=== PATIENT | female | born 1980 | race Hispanic/Latino ===

== ENCOUNTER 2018-03-22 20:51 | Inpatient (IN) | payer OTHER ==
[~2018-03-22] VITALS: Ht 157.5 cm; Wt 117.9 kg
[2018-03-22 23:34] LABS: BASOPHILS % (AUTO) 0.8 % (0.0-5.0); EOSINOPHILS % (AUTO) 0.2 % (0.0-8.0); HEMATOCRIT 38.4 % (36-48); LYMPHOCYTES % (AUTO) 21.3 % (21.0-51.0); MEAN CORPUSCULAR HGB CONC 34.1 g/dL (32.0-36.0); MONOCYTES % (AUTO) 6.3 % (3.0-13.0); NEUTROPHILS % (AUTO) 71.4 % (40.0-77.0); PLATELET COUNT (AUTO) 327 K/uL (130-400); RED BLOOD CELL COUNT(AUTO) 4.22 MIL/uL (4.00-5.50); RED CELL DISTRIBUTION WIDTH 12.9 % (11.0-15.5); WHITE BLOOD COUNT (AUTO) 19.7 K/uL (4.8-10.8)
[2018-03-22 23:43] LABS: CREATININE 0.9 mg/dL (0.5-1.5); POTASSIUM 3.6 mmol/L (3.5-5.1)
[2018-03-22 23:47] LABS: ALBUMIN 3.3 g/dL (3.5-5.0); BILIRUBIN,TOTAL 0.8 mg/dL (0.2-1.0); TOTAL PROTEIN, SERUM 7.5 g/dL (6.0-8.3)
[2018-03-22] MEDS ORDERED: SODIUM CHLORIDE 0.9% 50 ML IV ONE (23:47)
[2018-03-22] MEDS ORDERED: ZOSYN 3.375GM+NS 50ML 50 ML IV ONE (23:47)
[2018-03-22 23:58] LABS: APPEARANCE,URINE CLEAR (CLEAR); BILIRUBIN,URINE NEGATIVE (NEGATIVE); COLOR,URINE YELLOW (YELLOW); GLUCOSE, URINE (UA) NEGATIVE (NEGATIVE); KETONES,URINE 5 mg/dL (NEGATIVE); LEUKOCYTE ESTERASE ,URINE NEGATIVE (NEGATIVE); NITRATE,URINE NEGATIVE (NEGATIVE); OCCULT BLOOD,URINE NEGATIVE (NEGATIVE); PH,URINE 5.5 (5.0-8.0); PROTEIN,URINE NEGATIVE (NEGATIVE)
[2018-03-23] MEDS ORDERED: VANCOMYCIN 1GM+NS 250ML 250 ML IV ONE (02:55)
[2018-03-23 05:45] VITALS: BP 116/72
[2018-03-23 06:51] LABS: BASOPHILS % (AUTO) 0.3 % (0.0-5.0); EOSINOPHILS % (AUTO) 0.5 % (0.0-8.0); HEMATOCRIT 35.5 % (36-48); LYMPHOCYTES % (AUTO) 21.3 % (21.0-51.0); MEAN CORPUSCULAR HEMOGLOBIN 31.3 pg (27.0-33.0); MEAN CORPUSCULAR HGB CONC 34.5 g/dL (32.0-36.0); MEAN CORPUSCULAR VOLUME 90.8 fL (79-99); MONOCYTES % (AUTO) 7.4 % (3.0-13.0); NEUTROPHILS % (AUTO) 70.5 % (40.0-77.0); PLATELET COUNT (AUTO) 323 K/uL (130-400); RED BLOOD CELL COUNT(AUTO) 3.91 MIL/uL (4.00-5.50); RED CELL DISTRIBUTION WIDTH 12.8 % (11.0-15.5); WHITE BLOOD COUNT (AUTO) 14.8 K/uL (4.8-10.8)
[2018-03-23 07:04] LABS: CREATININE 0.9 mg/dL (0.5-1.5); POTASSIUM 3.4 mmol/L (3.5-5.1)
[2018-03-23 08:00] VITALS: BP 102/55
[2018-03-23 11:43] VITALS: BP 113/70
[2018-03-23 16:00] VITALS: BP 113/61
[2018-03-23] MEDS: TRAMADOL HCL 50 MG TABLET PO PRN (16:03)
[2018-03-23] MEDS: VANCOMYCIN 1GM+NS 250ML 250 ML IV SCH (16:04)
[2018-03-23] MEDS: SODIUM CHLORIDE 0.9% 1000ML 1,000 ML IV SCH ×2 (16:05→21:44)
[2018-03-23] MEDS ORDERED: MORPHINE SULFATE 2 MG/ML 1ML SYG IVP PRN (17:30)
[2018-03-23 19:11] VITALS: BP 113/71
[2018-03-23] MEDS ORDERED: MORPHINE SULFATE 4 MG/1ML SYG ONE (21:41)
[2018-03-23 23:16] VITALS: BP 116/65
[2018-03-24] VITALS (25 sets, daily range): BP systolic 108–137; BP diastolic 50–75
[2018-03-24] MEDS: SODIUM CHLORIDE 0.9% 1000ML 1,000 ML IV SCH ×2 (00:54→22:46)
[2018-03-24] MEDS: VANCOMYCIN 1GM+NS 250ML 250 ML IV SCH ×2 (02:45→15:24)
[2018-03-24 05:25] LABS: HEMATOCRIT 35.2 % (36-48); MEAN CORPUSCULAR HEMOGLOBIN 30.3 pg (27.0-33.0); MEAN CORPUSCULAR HGB CONC 33.1 g/dL (32.0-36.0); MEAN CORPUSCULAR VOLUME 91.7 fL (79-99); PLATELET COUNT (AUTO) 304 K/uL (130-400); RED BLOOD CELL COUNT(AUTO) 3.84 MIL/uL (4.00-5.50); RED CELL DISTRIBUTION WIDTH 12.9 % (11.0-15.5); WHITE BLOOD COUNT (AUTO) 15.9 K/uL (4.8-10.8)
[2018-03-24 05:41] LABS: ALBUMIN 2.8 g/dL (3.5-5.0); BILIRUBIN,TOTAL 0.6 mg/dL (0.2-1.0); CREATININE 0.9 mg/dL (0.5-1.5); POTASSIUM 3.7 mmol/L (3.5-5.1); TOTAL PROTEIN, SERUM 6.8 g/dL (6.0-8.3)
[2018-03-24] MEDS: ZOSYN 3.375GM+NS 50ML 50 ML IV SCH ×2 (13:11→20:59)
[2018-03-24] MEDS ORDERED: FENTANYL CITRATE PF 50 MCG/1 ML 2ML VIAL ONE (14:21)
[2018-03-24] MEDS ORDERED: PROPOFOL 10 MG/ML 20ML VIAL IV ONE (14:21)
[2018-03-24] MEDS ORDERED: LIDOCAINE PF 2% 5ML ABBOJECT ONE (14:21)
[2018-03-24] MEDS ORDERED: BACITRACIN 50,000 UNIT VIAL ONE (14:26)
[2018-03-24] MEDS ORDERED: KETOROLAC TROMETHAMINE 30MG/ML ONE (14:50)
[2018-03-24] MEDS ORDERED: ONDANSETRON HCL 4 MG/2 ML VIAL ONE (14:50)
[2018-03-24] MEDS ORDERED: MEPERIDINE-PF 25 MG/ML SYG ONE ×2 (15:16→15:27)
[2018-03-24] MEDS ORDERED: COMPOUND IV REFRIGERATED 1 EACH IVSOLN MISC PRN (16:00)
[2018-03-24] MEDS: VANCOMYCIN 1.5 GM in SODIUM CHLORIDE 0.9% 250 ML IV SCH (20:59)
[2018-03-24] MEDS ORDERED: MORPHINE SULFATE 8 MG/ML VIAL ONE (22:36)
[2018-03-25] VITALS (7 sets, daily range): BP systolic 98–132; BP diastolic 61–74
[2018-03-25] MEDS: ZOSYN 3.375GM+NS 50ML 50 ML IV SCH ×3 (03:31→21:16)
[2018-03-25] MEDS: VANCOMYCIN 1.5 GM in SODIUM CHLORIDE 0.9% 250 ML IV SCH ×2 (09:09→21:17)
[2018-03-25] MEDS: SODIUM CHLORIDE 0.9% 1000ML 1,000 ML IV SCH (11:52)
[2018-03-26 00:15] VITALS: BP_SYST 110; BP_SYST 113; BP_DIAS 61; BP_DIAS 62
[2018-03-26] MEDS: SODIUM CHLORIDE 0.9% 1000ML 1,000 ML IV SCH ×2 (01:09→12:18)
[2018-03-26] MEDS ORDERED: MORPHINE SULFATE 4 MG/1ML SYG ONE (02:33)
[2018-03-26] MEDS: ZOSYN 3.375GM+NS 50ML 50 ML IV SCH ×3 (03:21→20:58)
[2018-03-26 04:15] VITALS: BP 113/62
[2018-03-26 07:00] VITALS: BP 111/70
[2018-03-26 07:16] LABS: HEMATOCRIT 32.3 % (36-48); MEAN CORPUSCULAR HEMOGLOBIN 31.3 pg (27.0-33.0); MEAN CORPUSCULAR HGB CONC 33.9 g/dL (32.0-36.0); MEAN CORPUSCULAR VOLUME 92.2 fL (79-99); NUCLEATED RED BLOOD CELLS 0.1 % (0.0-0.19); PLATELET COUNT (AUTO) 374 K/uL (130-400); RED CELL DISTRIBUTION WIDTH 12.8 % (11.0-15.5); WHITE BLOOD COUNT (AUTO) 11.2 K/uL (4.8-10.8)
[2018-03-26 07:23] LABS: CREATININE 0.9 mg/dL (0.5-1.5); POTASSIUM 3.6 mmol/L (3.5-5.1)
[2018-03-26] MEDS: VANCOMYCIN 1.5 GM in SODIUM CHLORIDE 0.9% 250 ML IV SCH ×2 (08:44→20:58)
[2018-03-26 09:15] LABS: BASOPHILS % (MANUAL) 1 % (0-2); EOSINOPHILS % (MANUAL) 2 % (1-6); LYMPHOCYTES % (MANUAL) 25 % (22-44); MONOCYTES % (MANUAL) 5 % (2-9); SEGMENTED NEUTROPHILS % 67 % (40-70)
[2018-03-26 09:16] LABS: MAN.DIFF COMMENT-IMPRESSION MANUAL DIFFERENTIAL; PLATELET MORPHOLOGY COMMENT ADEQUATE
[2018-03-26 11:00] VITALS: BP 109/50
[2018-03-26 16:00] VITALS: BP 115/62
[2018-03-26] MEDS: TRAMADOL HCL 50 MG TABLET PO PRN (17:03)
[2018-03-26 19:15] VITALS: BP 121/78
[2018-03-27] VITALS (7 sets, daily range): BP systolic 89–112; BP diastolic 56–72
[2018-03-27] MEDS: ZOSYN 3.375GM+NS 50ML 50 ML IV SCH ×3 (05:27→20:58)
[2018-03-27] MEDS: SODIUM CHLORIDE 0.9% 1000ML 1,000 ML IV SCH ×2 (05:28→21:01)
[2018-03-27] MEDS: VANCOMYCIN 1.5 GM in SODIUM CHLORIDE 0.9% 250 ML IV SCH ×2 (09:27→21:06)
[2018-03-27] MEDS: TRAMADOL HCL 50 MG TABLET PO PRN (10:31)
[2018-03-28 03:13] VITALS: BP 135/64
[2018-03-28] MEDS: ZOSYN 3.375GM+NS 50ML 50 ML IV SCH ×2 (05:06→12:32)
[2018-03-28 08:47] VITALS: BP 111/63
[2018-03-28] MEDS: TRAMADOL HCL 50 MG TABLET PO PRN (09:42)
[2018-03-28] MEDS: VANCOMYCIN 1.5 GM in SODIUM CHLORIDE 0.9% 250 ML IV SCH (09:43)
[2018-03-28] MEDS: SODIUM CHLORIDE 0.9% 1000ML 1,000 ML IV SCH (09:43)
[2018-03-28 12:14] VITALS: BP 106/69
[2018-03-28 16:00] VITALS: BP 113/71
== END 2018-03-28 18:55 | disposition home or self-care (01) | DRG 854 ==
LOC: EDH 20:51 → EDHIP 20:52 → OBSVTOIN 20:52 → 3DH 03-23 03:44
PROVIDERS: ADMIT Internal Medicine; ATTEND Internal Medicine
PROC: 0U9MXZZ Drainage of Vulva, External Approach (ICD-10-PCS; 2018-03-24)
PROC: 0H99XZZ Drainage of Perineum Skin, External Approach (ICD-10-PCS; principal; 2018-03-24 14:32)
DX: A41.9 Sepsis, unspecified organism (principal); N76.4 Abscess of vulva; L03.314 Cellulitis of groin; L02.214 Cutaneous abscess of groin; Z68.42 Body mass index [BMI] 45.0-49.9, adult; E66.01 Morbid (severe) obesity due to excess calories; N76.2 Acute vulvitis; Z72.0 Tobacco use; Z82.0 Family history of epilepsy and other diseases of the nervous system; Z82.3 Family history of stroke; Z83.3 Family history of diabetes mellitus; Z82.49 Family history of ischemic heart disease and other diseases of the circulatory system; Z80.9 Family history of malignant neoplasm, unspecified; Z82.41 Family history of sudden cardiac death
CPT/HCPCS: 36415; 74176; 80048; 80053; 80202; 81003; 81025; 85025; 85027; 87040; 87070; 87076; 87205; 87210; 87486; 87797; A4606; J1885; J2001; J2175; J2270; J2405; J2543; J2704; J3010; J3370; J7030

== ENCOUNTER 2018-07-15 18:38 | Emergency (ER) | payer OTHER ==
[2018-07-15] MEDS ORDERED: ACETAMINOPHEN EXTRA STRENGTH 500 MG TABLET ONE (19:05)
== END 2018-07-15 20:09 | disposition home or self-care (01) ==
LOC: EDH 18:38
DX: M79.661 Pain in right lower leg (principal); Z72.0 Tobacco use
CPT/HCPCS: 93971

== ENCOUNTER 2021-03-14 07:46 | Emergency (ER) | payer BC, OTHER ==
[~2021-03-14] VITALS: Ht 157.5 cm; Wt 117.9 kg
[2021-03-14] MEDS ORDERED: KETOROLAC 60 MG VIAL (30MG/ML) IM SCH (08:30)
[2021-03-14] MEDS ORDERED: NAPR-1180 PO (09:27)
[2021-03-14] MEDS ORDERED: TRAM50TA2 PO (09:27)
[2021-03-14 09:37] VITALS: BP 111/63
== END 2021-03-14 09:42 | disposition home or self-care (01) ==
LOC: EDH 07:46
DX: M76.9 Unspecified enthesopathy, lower limb, excluding foot (principal); E11.9 Type 2 diabetes mellitus without complications; Z79.1 Long term (current) use of non-steroidal anti-inflammatories (NSAID)
CPT/HCPCS: 93971; 96372; 99284; J1885

== ENCOUNTER 2022-01-25 00:59 | Emergency (ER) | payer BC ==
[~2022-01-25] VITALS: Ht 157.5 cm; Wt 115.2 kg
[~2022-01-25 00:59] MED LIST: NAPR-1180 PO; TRAM50TA2 PO
[2022-01-25 01:36] LABS: APPEARANCE,URINE CLEAR (CLEAR); BILIRUBIN,URINE NEGATIVE (NEGATIVE); COLOR,URINE YELLOW (YELLOW); GLUCOSE, URINE (UA) NEGATIVE (NEGATIVE); KETONES,URINE NEGATIVE (NEGATIVE); LEUKOCYTE ESTERASE ,URINE NEGATIVE Leu/uL (NEGATIVE); NITRATE,URINE NEGATIVE (NEGATIVE); OCCULT BLOOD,URINE MODERATE (NEGATIVE); PH,URINE 5.5 (5.0-8.0); PROTEIN,URINE 20 mg/dL (NEGATIVE); UROBILINOGEN,URINE 3 mg/dL (0.2-1.0)
[2022-01-25 01:41] LABS: BACTERIA,URINE RARE /HPF (None Seen); MUCUS,URINE RARE LPF (None Seen); SQUAMOUS EPITHELIAL CELL,UR RARE /HPF (0-2)
[2022-01-25 01:50] LABS: BASOPHILS % (AUTO) 0.3 % (0.0-5.0); EOSINOPHILS % (AUTO) 1.7 % (0.0-8.0); HEMATOCRIT 40.6 % (36-48); LYMPHOCYTES % (AUTO) 23.5 % (21.0-51.0); MEAN CORPUSCULAR HEMOGLOBIN 31.3 pg (27.0-33.0); MEAN CORPUSCULAR HGB CONC 34.7 g/dL (32.0-36.0); MONOCYTES % (AUTO) 6.8 % (3.0-13.0); NEUTROPHILS % (AUTO) 67.3 % (40.0-77.0); PLATELET COUNT (AUTO) 320 K/uL (130-400); RED BLOOD CELL COUNT(AUTO) 4.51 MIL/uL (4.00-5.50); RED CELL DISTRIBUTION WIDTH 12.4 % (11.0-15.5); WHITE BLOOD COUNT (AUTO) 13.7 K/uL (4.8-10.8)
[2022-01-25 01:56] LABS: CREATININE 1.1 mg/dL (0.5-1.5); POTASSIUM 4.2 mmol/L (3.5-5.1)
[2022-01-25 02:00] LABS: TOTAL PROTEIN, SERUM 8.2 g/dL (6.0-8.3)
[2022-01-25] MEDS ORDERED: ONDANSETRON 4MG INJ IVP ONE (02:00)
[2022-01-25] MEDS ORDERED: 0.9%NACL 1000ML 2,000 ML IV ONE (02:00)
[2022-01-25] MEDS ORDERED: MORPHINE 2 MG SYG IM ONE (02:00)
[2022-01-25] MEDS ORDERED: LIDOCAINE HCL 1% 20 ML VIAL INJ SCH (02:30)
[2022-01-25] MEDS ORDERED: KETOROLAC 30MG VIAL (30MG/ML) IVP ONE (02:30)
[2022-01-25] MEDS ORDERED: LIDOCAINE HCL 1% 20 ML VIAL ONE (02:39)
[2022-01-25] MEDS ORDERED: ONDA4TAB10 PO (04:27)
[2022-01-25] MEDS ORDERED: IBUP-1493 PO (04:27)
[2022-01-25] MEDS ORDERED: TAMS-1 PO (04:27)
[2022-01-25 04:42] VITALS: BP 123/62
== END 2022-01-25 04:54 | disposition home or self-care (01) ==
LOC: EDH 00:59
DX: N20.0 Calculus of kidney (principal); E11.9 Type 2 diabetes mellitus without complications; Z79.899 Other long term (current) drug therapy
CPT/HCPCS: 99284; 74176; 96374; 96361; 96375; 80053; 85025; 81001; 81025; 36415; 96372; J7030; J2405; J1885